=== PATIENT | male | born 1985 | race Caucasian/White ===

== ENCOUNTER 2022-07-13 11:42 | Emergency (ER) | payer SELFPAY ==
[2022-07-13] VITALS (26 sets, daily range): BP systolic 128–147; BP diastolic 74–87; PULSE 58–89; RESP 11–24; TEMP 37.2–37.3; O2SAT 98–100
--- NOTE | 2022-07-13 11:30 | RT.EKG_ITS ---
APPROVED REPORT Exam: Resting ECG Reason for Exam: Chest pain Patient Location: E HR:71 bpm ECG Measurements Heart Rate 71 AXIS OH 163 P 76 QRSd 97 QRS 43 QT 415 T 48 QTc 452 Conclusion Sinus rhythm...normal P axis, V-rate 60- 99 Probable left ventricular hypertrophy...multiple LVH criteria. Sinus. Normal axis. Peaked T waves anterior leads. No STEMI. I have reviewed and interpreted ECG and agree with software generated interpretation.
--- NOTE | 2022-07-13 12:00 | DI.RAD_ITS ---
Exam(s) XR CHEST 2V PA LATERAL EXAM: XR CHEST 2V PA LATERAL CLINICAL HISTORY: chest pain, r/o acute disease. TECHNIQUE: 2D digital imaging was performed. COMPARISON: No exams were available for comparison FINDINGS: 2 views: Heart size is normal. The mediastinum is not widened. Lungs are clear. No infiltrates nor pleural effusions. IMPRESSION: No acute pulmonary findings. DATA REPOSITORY: RADIATION DOSE DELIVERED:
[2022-07-13 12:25] LABS: Abs Immature Grans 0.01 10^3/uL (0.0-0.06); Absolute Basophil Count 0.09 10^3/uL (0.0-0.2); Absolute Eosinophil Count 0.12 10^3/uL (0.0-0.7); Absolute Lymphocyte Count 2.61 10^3/uL (1.2-3.4); Absolute Monocyte Count 0.84 10^3/uL (0.1-0.8); Absolute Neutrophil Count 5.67 10^3/uL (1.2-6.7); Eosinophils % 1.3; HCT 43.5 % (40.0-50.0); HGB 15.3 g/dL (13.5-17.5); Immature Grans % 0.1; Lymphocytes % 27.9; MCH 31.9 pg (27.0-33.0); MCHC 35.2 % (32.0-36.0); MCV 91 fL (80-95); MPV 9.7 fL (8.0-11.0); Neutrophils % 60.7; Platelet Count 267 10^3/uL (130-400); RBC 4.79 10^6/uL (4.36-5.78); RDW 12.2 % (11.8-14.1); RDW-SD 41.1 fL; WBC 9.34 10^3/uL (4.4-10.8)
[2022-07-13 12:43] LABS: ALT 22 U/L (16-63); AST 16 U/L (15-37); Albumin 4.4 g/dL (3.4-5.0); Alkaline Phosphatase 61 U/L (46-116); Anion Gap 13.3 mmol/L (3-11); BUN 12 mg/dL (7-18); Bilirubin, Total 1.1 mg/dL (0.2-1.0); CO2 23.7 mmol/L (21.0-32.0); CREATININE 0.7 mg/dL (0.70-1.30); Calcium 9.1 mg/dL (8.5-10.1); Chloride 104 mmol/L (98-107); Estimated GFR 122.47 (mL/min/1.73m2); Glucose 80 mg/dL (74-106); Magnesium 1.9 mg/dL (1.8-2.4); Potassium 3.3 mmol/L (3.5-5.1); Sodium 141 mmol/L (136-145); Total Protein 7.7 g/dL (6.4-8.2); Troponin I < 50 ng/L (<or=60)
[2022-07-13 12:59] LABS: D-Dimer 382 ng/mlFEU (<500)
--- NOTE | 2022-07-13 13:13 | ED.GENADUL_ITS ---
Discharge Plan Disposition Patient Disposition: AGAINST MEDICAL ADVICE Condition: Stable Discharge Details Clinical Impression: Chest pain, Crack cocaine use Primary Care Provider: Ángela,Local ED Provider: Karen Kathleen Home Meds and New Rx's Prescriptions: No Action No Known Home Meds Discharge Instructions Instructions: Chest Pain (ED), Cocaine Abuse (ED) Additional Instructions: You are leaving the hospital AGAINST MEDICAL ADVICE. It is recommended to stay in the emergency department at this time for additional testing and monitoring. Your blood tests, EKG and imaging today are reassuring and show no evidence of acute concerning or significant findings. Drink plenty of fluids and get plenty of rest. Follow-up with your primary care doctor in 1 week. Return to the emergency department with any worsening or new concerning symptoms. Discharge Data Discharge Physician: Karen Kathleen Medical Decision Making 37-year-old male with a history of daily alcohol use and occasional crack cocaine use who presents for reassessment of chest tightness and shortness of breath after smoking crack cocaine this morning. EKG notes rate of 71, sinus, normal axis, peaked T waves anterior leads, no STEMI. Vitals within normal limits. Patient appears slightly anxious but nontoxic. Suspect sympathomimetic reaction to cocaine, but also consider vasospasm, ACS, PE or pneumonia. We will place an IV, bolus IV fluids, screening labs, chest x- ray, IV fluids and Ativan and reassess. Labs and imaging reviewed and unremarkable. Normal white blood cell count. Potassium 3.3, recommend repletion in diet. Troponin negative. Chest x-ray negative for acute disease. Discussed with patient that considering his symptom presentation after crack cocaine use, would recommend at minimum a repeat troponin and EKG but he is declining to stay for these tests at this time. Despite our efforts, the patient has decided to leave against medical advice. He has a normal mental status and full decisional capacity. The patient understands his condition and the risks of leaving AMA, including BUT NOT LIMITED TO permanent disability, , etc., and has had an opportunity to ask questions about his/her medical condition. The patient has been informed that he may return for care at any time, and has been referred to his local medical physician for follow up DEYVI. AMA form signed. Usual and customary return precautions given prior to leaving. Medical Records Medical records reviewed: Yes I reviewed the patient's medical records. Imaging Data Radiologic Study: Radiologist's impression: ?XR CHEST 2V PA ? LATERAL CLINICAL HISTORY: ? chest pain, r/o acute disease. ? TECHNIQUE:? 2D digital imaging was performed. COMPARISON:? No exams were available for comparison FINDINGS: 2 views: Heart size is normal.? The mediastinum is not widened. Lungs are clear.? No infiltrates nor pleural effusions. IMPRESSION: No acute pulmonary findings. Lab Data Lab results reviewed: Yes I reviewed the patient's lab results. Labs: Laboratory Tests Range/Units 07/13/22 07/13/22 07/13/22 12:20 12:20 12:20 WBC (4.4-10.8) 10^3/uL 9.34 RBC (4.36-5.78) 10^6/uL 4.79 Hgb (13.5-17.5) g/dL 15.3 Hct (40.0-50.0) % 43.5 MCV (80-95) fL 91 MCH (27.0-33.0) pg 31.9 MCHC (32.0-36.0) % 35.2 RDW (11.8-14.1) % 12.2 Plt Count (130-400) 10^3/uL 267 MPV (8.0-11.0) fL 9.7 Immature Gran % 0.1 Neutrophils % 60.7 Lymphocytes % 27.9 Monocytes % 9.0 Eosinophils % 1.3 Basophils % 1.0 Nucleated RBC % (0.0-0.3) % 0.0 Absolute Neutrophils (1.2-6.7) 10^3/uL 5.67 Absolute Lymphocytes (1.2-3.4) 10^3/uL 2.61 Absolute Monocytes (0.1-0.8) 10^3/uL 0.84 H Absolute Eosinophils (0.0-0.7) 10^3/uL 0.12 Absolute Basophils (0.0-0.2) 10^3/uL 0.09 D-Dimer (<500) ng/mlFEU 382 Sodium (136-145) mmol/L 141 Potassium (3.5-5.1) mmol/L 3.3 L Chloride (98-107) mmol/L 104 Carbon Dioxide (21.0-32.0) mmol/L 23.7 Anion Gap (3-11) mmol/L 13.3 H BUN (7-18) mg/dL 12 Creatinine (0.70-1.30) mg/dL 0.7 Est GFR (CKD-EPI 2020) (mL/min/1.73m2) 122.47 Glucose (74-106) mg/dL 80 Calcium (8.5-10.1) mg/dL 9.1 Magnesium (1.8-2.4) mg/dL 1.9 Total Bilirubin (0.2-1.0) mg/dL 1.1 H AST (15-37) U/L 16 ALT (16-63) U/L 22 Alkaline Phosphatase (46-116) U/L 61 Troponin I (<or=60) ng/L < 50 Total Protein (6.4-8.2) g/dL 7.7 Albumin (3.4-5.0) g/dL 4.4 ECG Data Attestation: I personally reviewed and interpreted this ECG (s) as follows: Interpretation: Rate of 81, sinus tach, peaked T waves anterior leads, no STEMI. HPI General Mode of arrival: ambulatory . Date/Time Provider Initiated Documentation: 07/13/22 12:05 . Limitations to Documentation: no limitations . Information obtained by: patient . HPI Narrative: Patient is a 37-year-old male with a history of daily alcohol and occasional crack cocaine use who presents for chest tightness and shortness of breath that started within minutes of smoking crack cocaine at 10 AM this morning. Patient states he developed chest tightness and difficulty breathing. He states after this he developed tingling in his hands and feet and then progressed to his entire body. He states his breath and chest pressure improved after approximately a few hours. Patient is any fever, cough, vomiting or diarrhea. States he drank 6 beers last night and 1 beer today. States he drinks a sixpack of beer occasionally. Daily denies any other use today. He states he smokes crack cocaine a couple times a week. Related Data Home Medications Medication Instructions Recorded Confirmed Unknown [No Known Home Meds] 07/13/22 07/13/22 Allergies Allergy/AdvReac Type Severity Reaction Status Date / Time No Known Allergies Allergy Unverified 07/13/22 11:53 General Stated Complaint: Chest Pain AYANNA: 3 Review of Systems All systems reviewed & are unremarkable except as noted in HPI and below Constitutional Constitutional: Reports as per HPI, Denies chills and Denies fever(s) Eyes Eyes: Denies blurry vision ENT Ears, Nose, Mouth, and Throat: Denies dizziness, Denies sore throat and Denies throat swelling Cardiovascular Cardiovascular: Reports chest pain and Denies dyspnea Respiratory Respiratory: Denies cough and Denies dyspnea Gastrointestinal Gastrointestinal: Denies abdominal pain, Denies diarrhea and Denies vomiting Genitourinary Genitourinary: Denies hematuria and Denies dysuria Musculoskeletal Musculoskeletal: Denies back pain and Denies numbness Integumentary/Breasts Skin/Breast: Denies lesions and Denies rash Neurologic Neurologic: Denies dizziness, Denies localized weakness and Denies numbness Allergic/Immunologic Allergic/Immunologic: Denies throat swelling PFSH All Active Problems Chest pain (Acute) Crack cocaine use (Acute) Medical History (Updated 07/13/22 @ 14:46 by Karen Kathleen DO) Alcohol abuse Narcotic abuse Surgical History (Updated 07/13/22 @ 13:31 by Karen Kathleen DO) No significant past surgical history Social History Smoking/Tobacco Use Status: Current every day Smoking risk assessment performed?: Yes Alcohol Intake: current Alcohol type: beer Substance use type: crack/cocaine Details: had beer last night Exam Const General: cooperative, healthy appearing and no acute distress Orientation: alert, awake and oriented x3 HENMT Head: normal to inspection Face and sinus: normal facial exam Eyes General: appearance normal, both eyes and all related structures Pupils: PERRL EOM: EOM intact bilaterally Neck Neck: normal visual inspection and No submandibular swelling Lymphatic: no lymphadenopathy noted Chest Chest: normal inspection of the chest and no tenderness Resp Effort & Inspection: normal respiratory effort and able to speak in complete sentences Auscultation: clear to auscultation bilaterally Cardio Rate: regular rate Rhythm: regular rhythm GI Inspection: normal to inspection Palpation: soft, not firm, not rigid and nontender Auscultation: normal bowel sounds Male General Exam: Yes normal external exam Back/Spine/Pelvis Thoracic/Lumbar Spine: thoracic and lumbar spine normal to inspection Pelvis: no pain with anterior-posterior compression Skin General skin exam: no rashes or lesions noted Neuro General: patient alert, patient awake and patient oriented x3 Cognition: normal cognition Speech: speech normal Motor: muscle tone normal throughout Sensory Exam: no sensory deficits noted Extrem General: normal to inspection, full ROM, capillary refill normal, no calf tenderness bilaterally and no edema Psych Appearance: grossly normal Mental Status: mental status grossly normal Speech and Movement: speech and movement normal Affect: normal affect Course Vital Signs Vital signs: Vital Signs Temperature 99.1 F 07/13/22 11:43 Pulse 62 07/13/22 11:43 Respiratory Rate 20 07/13/22 11:43 Blood Pressure 147/87 H 07/13/22 11:43 Pulse Oximetry 100 07/13/22 11:43 Temperature 99.1 F 07/13/22 11:43 Temperature Source Temporal Artery Scan 07/13/22 11:43 Pulse 65 07/13/22 12:16 Pulse 79 07/13/22 12:20 Respiratory Rate 17 07/13/22 12:20 Respiratory Effort 07/13/22 11:56 Respiratory Depth Normal 07/13/22 11:56 Respiratory Pattern Normal 07/13/22 11:56 Blood Pressure 128/75 07/13/22 12:16 Blood Pressure Mean 87 07/13/22 12:16 Blood Pressure Position Sitting 07/13/22 11:43 Pulse Oximetry 98 07/13/22 12:20 Oxygen Delivery Method Room Air 07/13/22 11:43 Oxygen Flow Rate 0 07/13/22 11:43 Pain Level 3 07/13/22 11:43 Lab/Test Results Lab/Test Results: Laboratory Tests Range/Units 07/13/22 07/13/22 07/13/22 12:20 12:20 12:20 WBC (4.4-10.8) 10^3/uL 9.34 RBC (4.36-5.78) 10^6/uL 4.79 Hgb (13.5-17.5) g/dL 15.3 Hct (40.0-50.0) % 43.5 MCV (80-95) fL 91 MCH (27.0-33.0) pg 31.9 MCHC (32.0-36.0) % 35.2 RDW (11.8-14.1) % 12.2 Plt Count (130-400) 10^3/uL 267 MPV (8.0-11.0) fL 9.7 Immature Gran % 0.1 Neutrophils % 60.7 Lymphocytes % 27.9 Monocytes % 9.0 Eosinophils % 1.3 Basophils % 1.0 Nucleated RBC % (0.0-0.3) % 0.0 Absolute Neutrophils (1.2-6.7) 10^3/uL 5.67 Absolute Lymphocytes (1.2-3.4) 10^3/uL 2.61 Absolute Monocytes (0.1-0.8) 10^3/uL 0.84 H Absolute Eosinophils (0.0-0.7) 10^3/uL 0.12 Absolute Basophils (0.0-0.2) 10^3/uL 0.09 D-Dimer (<500) ng/mlFEU 382 Sodium (136-145) mmol/L 141 Potassium (3.5-5.1) mmol/L 3.3 L Chloride (98-107) mmol/L 104 Carbon Dioxide (21.0-32.0) mmol/L 23.7 Anion Gap (3-11) mmol/L 13.3 H BUN (7-18) mg/dL 12 Creatinine (0.70-1.30) mg/dL 0.7 Est GFR (CKD-EPI 2020) (mL/min/1.73m2) 122.47 Glucose (74-106) mg/dL 80 Calcium (8.5-10.1) mg/dL 9.1 Magnesium (1.8-2.4) mg/dL 1.9 Total Bilirubin (0.2-1.0) mg/dL 1.1 H AST (15-37) U/L 16 ALT (16-63) U/L 22 Alkaline Phosphatase (46-116) U/L 61 Troponin I (<or=60) ng/L < 50 Total Protein (6.4-8.2) g/dL 7.7 Albumin (3.4-5.0) g/dL 4.4
[2022-07-13] MEDS: Normal Saline 1,000 ML 1000 ML IV (13:51)
[2022-07-13] MEDS: LORazepam 1 MG TAB PO (13:53)
[2022-07-13 15:15] LABS: TSH (W/Ref FT4) 0.96 uIU/mL (0.36-3.74)
== END 2022-07-13 15:03 | disposition left against medical advice (07) ==
PROVIDERS: Emergency Provider Physician Assistant
DX: R07.89 Other chest pain (principal); F14.90 Cocaine use, unspecified, uncomplicated; Z53.20 Procedure and treatment not carried out because of patient's decision for unspecified reasons
CPT/HCPCS: 80053; 93005; 96360; 99284; 71046; 83735; 84443; 84484; 85025; 85379; 93010

== ENCOUNTER 2022-10-02 13:00 | Outpatient (REF) | payer MEDICAID, SELFPAY ==
[2022-10-02 15:00] LABS: HGB 15.8 g/dL (13.5-17.5); MCH 31.4 pg (27.0-33.0); MCHC 34.3 % (32.0-36.0); MCV 92 fL (80-95); MPV 10.1 fL (8.0-11.0); Platelet Count 303 10^3/uL (130-400); RBC 5.03 10^6/uL (4.36-5.78); RDW 13.1 % (11.8-14.1); RDW-SD 43.6 fL
[2022-10-02 15:32] LABS: ALT 37 U/L (16-63); AST 23 U/L (15-37); Albumin 4.3 g/dL (3.4-5.0); Alkaline Phosphatase 80 U/L (46-116); Anion Gap 8.6 mmol/L (3-11); BUN 11 mg/dL (7-18); Bilirubin, Total 0.7 mg/dL (0.2-1.0); CO2 27.4 mmol/L (21.0-32.0); CREATININE 0.9 mg/dL (0.70-1.30); Calcium 9.3 mg/dL (8.5-10.1); Chloride 104 mmol/L (98-107); Estimated GFR 113.51 (mL/min/1.73m2); Glucose 93 mg/dL (74-106); Potassium 4.4 mmol/L (3.5-5.1); Sodium 140 mmol/L (136-145); TSH (W/Ref FT4) 1.21 uIU/mL (0.36-3.74); Total Protein 7.6 g/dL (6.4-8.2)
== END 2022-10-02 13:01 | disposition home or self-care (01) ==
LOC: NCHCN 13:00
PROVIDERS: Visit Provider Family Medicine
DX: F10.20 Alcohol dependence, uncomplicated (principal); F41.8 Other specified anxiety disorders; F14.10 Cocaine abuse, uncomplicated; Z00.00 Encounter for general adult medical examination without abnormal findings
CPT/HCPCS: 80053; 85027; 84443